=== PATIENT | male | born 1935 | race Caucasian/White ===

== ENCOUNTER 2018-06-30 16:05 | Emergency (ER) | payer MEDICARE, BC ==
[2018-06-30 16:31] VITALS: RESP 16
[2018-06-30] MEDS ORDERED: DIPH,PERTUS(ACELL)TETVAC-LF 0.5 ML VIAL IM ONE (16:59)
--- NOTE | 2018-06-30 17:03 | ED ---
General Adult HPI - General Source: patient, RN notes reviewed Mode of arrival: wheelchair Limitations: no limitations <Artem Rao - Last Filed: 06/30/18 17:00> <Tano Garrison - Last Filed: 06/30/18 19:13> - General Chief complaint: Fall Stated complaint: Fall-Head,Chest, Hand Injury Time Seen by Provider: 06/30/18 16:25 - History of Present Illness Initial comments: This is an 82-year-old male presents emergency department after he tripped and fell today. Patient fell hit his head has a laceration above the left eye. Patient states she does not have a headache he did not lose consciousness and he was not days per patient denies any neck pain. Patient denies any numbness or weakness. Patient states he has full range of motion of his neck. Patient also complains of left-sided rib pain when he struck the ground he says he hits his ribs. Patient denies any difficulty breathing or shortness of breath. Patient states he also has a skin tear to the medial aspect of his left hand at the area of the MCP joint of the fifth digit. Patient also has some tenderness of the fifth metacarpal. Patient also has some swelling under the left eye and some tenderness in that area. Patient is not on any blood thinners. (Artem Roa) - Related Data Home Medications Medication Instructions Recorded Confirmed Acetaminophen Tab [Tylenol] 500 mg PO Q8HR 06/30/18 06/30/18 Aspirin [[place] Aspirin EC] 81 mg PO DAILY 06/30/18 06/30/18 Atorvastatin [Lipitor] 80 mg PO DAILY 06/30/18 06/30/18 Ezetimibe [Zetia] 10 mg PO DAILY 06/30/18 06/30/18 Glucosam/Víctor-Msm1/C/Onesimo/Bosw 1 tab PO DAILY 06/30/18 06/30/18 [Glucosamine-Chondroitin Tablet] Latanoprost/Pf [Latanoprost 0.005% 1 drop BOTH EYES BID 06/30/18 06/30/18 Eye Drop] Allergies Allergy/AdvReac Type Severity Reaction Status Date / Time No Known Allergies Allergy Verified 06/30/18 16:50 Review of Systems ROS Other: All systems not noted in ROS Statement are negative. <Artem Rao - Last Filed: 06/30/18 17:00> ROS Other: All systems not noted in ROS Statement are negative. <MeliTano - Last Filed: 06/30/18 19:13> ROS Statement: Those systems with pertinent positive or pertinent negative responses have been documented in the HPI. Past Medical History Past Medical History: Hyperlipidemia History of Any Multi-Drug Resistant Organisms: None Reported Additional Past Surgical History / Comment(s): CAROTID ARTERY Past Psychological History: No Psychological Hx Reported Smoking Status: Never smoker Past Alcohol Use History: Daily Past Drug Use History: None Reported <Artem Rao - Last Filed: 06/30/18 17:00> General Exam Limitations: no limitations <Artem Rao - Last Filed: 06/30/18 17:00> - General Exam Comments Initial Comments: GENERAL: Patient is well-developed and well-nourished. Patient is nontoxic and well- hydrated and is in mild distress. ENT: Neck is soft and supple. No significant lymphadenopathy is noted. Oropharynx is clear. Moist mucous membranes. Neck has full range of motion without eliciting any pain. Patient has swelling under the left eye and is very tender to touch and the inferior orbital region on the left. EYES: The sclera were anicteric and conjunctiva were pink and moist. Extraocular movements were intact and pupils were equal round and reactive to light. Eyelids were unremarkable. PULMONARY: Unlabored respirations. Good breath sounds bilaterally. No audible rales rhonchi or wheezing was noted. CARDIOVASCULAR: There is a regular rate and rhythm without any murmurs gallops or rubs. ABDOMEN: Soft and nontender with normal bowel sounds. No palpable organomegaly was noted. There is no palpable pulsatile mass. SKIN: Laceration above the left eye measuring 2 cm. Patient has a small skin tear in the medial aspect of the left hand over the fifth MCP. Patient has tenderness of the fifth metacarpal. NEUROLOGIC: Patient is alert and oriented x3. Cranial nerves II through XII are grossly intact. Motor and sensory are also intact. Normal speech, volume and content. Symmetrical smile. MUSCULOSKELETAL: Normal extremities with adequate strength and full range of motion. LYMPHATICS: No significant lymphadenopathy is noted PSYCHIATRIC: Normal psychiatric evaluation. (Artem Rao) Course Vital Signs 06/30/18 16:26 Temperature 97.8 F Pulse Rate 75 Respiratory 16 Rate Blood Pressure 153/75 O2 Sat by Pulse 96 Oximetry Procedures - Orthopedic Splinting/Casting Injury #1 Side: left Upper Extremity Injury Location: hand Upper Extremity Immobilizer: ulnar gutter <Tano Garrison - Last Filed: 06/30/18 19:13> - Orthopedic Splinting/Casting Injury #1 Additional Comments: NV intact after splint applied, patient does have bandages on the hand under the splint (Tano Garrison) Medical Decision Making <Tano Garrison - Last Filed: 06/30/18 19:13> - Medical Decision Making 82-year-old mechanical fall without loss of consciousness or headache. Chest x- ray shows mild pulmonary fibrotic changes without heart failure or pneumothorax. However clinically patient likely has rib fracture. Initial x-ray of the left hand is negative. However repeat x-ray shows a nondisplaced acute fracture of the proximal fifth metacarpal. This was splinted with an ulnar gutter splint. Lacerations were repaired. Discussed strict return parameters. Discussed following up with orthopedics and primary care in 1-2 days. (Tano Garrison) Disposition <Artem Rao - Last Filed: 06/30/18 17:00> Is patient prescribed a controlled substance at d/c from ED?: No <Tano Garrison - Last Filed: 06/30/18 19:13> Clinical Impression: Laceration, Rib fracture, Fracture of fifth metacarpal bone of left hand Disposition: HOME SELF-CARE Condition: Good Instructions (If sedation given, give patient instructions): Laceration (ED), Care For Your Stitches (ED), Hand Fracture (ED) Additional Instructions: Please rest ice and elevate the hand. Take Tylenol for pain. Please follow-up with orthopedics in one to 2 days. Return to the emergency department in 5 days to have sutures removed. Return if you have any other worsening symptoms. Follow-up with primary care in 1-2 days. Referrals: Wayne Hudson MD [STAFF PHYSICIAN] - 1-2 days Renetta Phelan MD [REFERRING] - 1-2 days
--- NOTE | 2018-06-30 17:38 | XR ---
EXAMINATION TYPE: XR chest 2V DATE OF EXAM: 06/30/2018 COMPARISON: NONE HISTORY: Short of breath TECHNIQUE: Frontal and lateral views of the chest are obtained. FINDINGS: There is slight coarsening of interstitial markings. Heart size is normal. There is no hea rt failure. Thoracic aorta is atheromatous. There is no pleural effusion. There is wire suture at the left clavicle from apparent old trauma. IMPRESSION: Mild pulmonary fibrotic changes. No heart failure. No pneumothorax.
--- NOTE | 2018-06-30 17:41 | CT ---
EXAMINATION TYPE: CT facial bones wo con DATE OF EXAM: 06/30/2018 COMPARISON: None HISTORY: Fall. Left side supraortbital laceration. CT DLP: 507.3 mGycm Automated exposure control for dose reduction was used. TECHNIQUE: CT scan of the sinuses is performed without contrast, axial images are obtained, coronal r eformatted images are also reviewed. FINDINGS: The orbital margins are intact. There is some depression of the floors of the left and righ t orbit consistent with old blowout fractures. I see no definite acute fracture. There is no evidence of retro-orbital mass. There is no evidence of mandible fracture. Temporomandibular joints appear in tact. Zygomatic arches appear normal. Nasal bone is deviated to the right side consistent with old in jury. There is apparent wire sutures at the lateral margins of both orbits. There is normal aeration of the temporal bones. There is density over the left lateral frontal bone consistent with laceration or bandages. There is no sign of a definite foreign body. There is soft tissue swelling inferior to the left orbit and anterior to the left zygoma. IMPRESSION: There is evidence of old fractures of the orbits. No acute fracture seen. Soft tissue swe lling below the left orbit.
--- NOTE | 2018-06-30 17:42 | XR ---
EXAMINATION TYPE: XR hand limited LT DATE OF EXAM: 06/30/2018 COMPARISON: NONE HISTORY: Pain TECHNIQUE: 2 views FINDINGS: There is some narrowing and spurring at the DIP joints of all the digits. This is more noti ceable at the thumb and the index finger and little finger. There is narrowing and spurring at the fi rst carpometacarpal joint. I see no fracture. There is no erosion. There is mild deformity of the bas e of the fifth metacarpal consistent with old healed fracture. IMPRESSION: No acute abnormality of the left hand.
[2018-06-30] MEDS ORDERED: LIDOCAINE 1% INJ 10MG/ML (20 ML MDV) SQ ONE (17:59)
[2018-06-30] MEDS ORDERED: SODIUM CHLORIDE 0.9% IRRIG 1,000 ML BTL IRRIGATION ONE (18:00)
--- NOTE | 2018-06-30 18:33 | XR ---
EXAMINATION TYPE: XR hand limited LT DATE OF EXAM: 06/30/2018 COMPARISON: Today HISTORY: Pain TECHNIQUE: 2 views FINDINGS: There is some deformity of the base of the fifth metacarpal. It is not clear if this is an acute fracture or evidence of old fracture. A definitive acute fracture line is not demonstrated. IMPRESSION: Nondisplaced acute fracture of the proximal fifth metacarpal not entirely excluded.
[2018-06-30 19:21] VITALS: BP 146/82; PULSE 74; TEMP 98.2
--- NOTE | 2018-07-01 04:49 | CDI ---
Documentation Clarification OP Dear Artem Rao MD Please do addendum to ED report which provides laceration repair preocedure note. Thank you, Conner Jamison Refrigeration Plant Operator If you have any questions, please contact Obstetrics Gynecology Md at [phone] [facility]
== END 2018-06-30 19:21 | disposition home or self-care (01) ==
LOC: EC 16:05
DX: S62.347A Nondisplaced fracture of base of fifth metacarpal bone, left hand, initial encounter for closed fracture (principal); S22.32XA Fracture of one rib, left side, initial encounter for closed fracture; S01.81XA Laceration without foreign body of other part of head, initial encounter; E78.5 Hyperlipidemia, unspecified; Z23 Encounter for immunization; Z79.82 Long term (current) use of aspirin; Z79.899 Other long term (current) drug therapy; W01.10XA Fall on same level from slipping, tripping and stumbling with subsequent striking against unspecified object, initial encounter; Y92.89 Other specified places as the place of occurrence of the external cause
CPT/HCPCS: 99284; 12011; 29125; 90471; 73120; 71046; 70486; 90715; J2001

== ENCOUNTER → 2020-10-26 | Outpatient (CLI) | payer MEDICARE, BC ==
--- NOTE | 2020-11-05 18:56 | P.HOLTER ---
24 hour Holter monitor shows sinus mechanism with a prolonged MN interval Runs of nonsustained SVT/atrial tachycardia, brief PVCs, infrequent Heart rates ranged from 56-94 beats a minute average 68 beats a minute
--- NOTE | 2020-11-06 17:11 | HM ---
Date: 11/05/20 18:55 Initialization Date: 11/05/20 18:55 24 hour Holter monitor shows sinus mechanism with a prolonged OH interval Runs of nonsustained SVT/atrial tachycardia, brief PVCs, infrequent Heart rates ranged from 56-94 beats a minute average 68 beats a minute MTDD
== END | disposition home or self-care (01) ==
LOC: RADECHMAIN 11:35
PROVIDERS: ATTEND Family Medicine
DX: I49.3 Ventricular premature depolarization (principal)
CPT/HCPCS: 93225; 93226

== ENCOUNTER 2022-09-05 14:55 | Emergency (ER) | payer MEDICARE, BC ==
[2022-09-05 15:50] VITALS: RESP 20
--- NOTE | 2022-09-05 16:40 | ED ---
General Adult HPI - General Chief complaint: Urogenital Stated complaint: Urinary urgency Time Seen by Provider: 09/05/22 15:57 Source: patient, family, RN notes reviewed Mode of arrival: ambulatory Limitations: no limitations - History of Present Illness Initial comments: Patient is a pleasant 86-year-old male presenting to the emergency Department with complaints with urinary urgency. Onset of symptoms was last 2-3 days. Patient feels like he frequently needs to go the restroom. Patient sometimes is unable to go her only small amounts. Patient has had some minimal symptoms similar to this for months or years however never this severe. No suprapubic fullness. No fever. - Related Data Home Medications Medication Instructions Recorded Confirmed Acetaminophen Tab [Tylenol] 500 mg PO Q8HR 06/30/18 06/30/18 Aspirin [[place] Aspirin EC] 81 mg PO DAILY 06/30/18 06/30/18 Atorvastatin [Lipitor] 80 mg PO DAILY 06/30/18 06/30/18 Ezetimibe [Zetia] 10 mg PO DAILY 06/30/18 06/30/18 Glucosam/Víctor-Msm1/C/[place]es[place]/Bosw 1 tab PO DAILY 06/30/18 06/30/18 [Glucosamine-Chondroitin Tablet] Latanoprost/Pf [Latanoprost 0.005% 1 drop BOTH EYES BID 06/30/18 06/30/18 Eye Drop] Previous Rx's Medication Instructions Recorded Sulfamethox-Tmp 800-160Mg [Bactrim 1 each PO Q12HR #20 tab 09/05/22 DS 800-160 mg] Allergies Allergy/AdvReac Type Severity Reaction Status Date / Time No Known Allergies Allergy Verified 09/05/22 15:50 Review of Systems ROS Statement: Those systems with pertinent positive or pertinent negative responses have been documented in the HPI. ROS Other: All systems not noted in ROS Statement are negative. Constitutional: Denies: fever Eyes: Denies: eye pain ENT: Denies: ear pain Respiratory: Denies: cough Cardiovascular: Denies: chest pain Endocrine: Denies: fatigue Gastrointestinal: Reports: as per HPI Genitourinary: Reports: urgency Musculoskeletal: Denies: back pain Skin: Denies: rash Neurological: Denies: weakness Past Medical History Past Medical History: Hyperlipidemia, Prostate Disorder Additional Past Medical History / Comment(s): COVID- 22 History of Any Multi-Drug Resistant Organisms: None Reported Additional Past Surgical History / Comment(s): CAROTID ARTERY, TURP Past Psychological History: No Psychological Hx Reported Smoking Status: Never smoker Past Alcohol Use History: Daily Past Drug Use History: None Reported General Exam Limitations: no limitations General appearance: alert, in no apparent distress Head exam: Present: normocephalic Respiratory exam: Present: normal lung sounds bilaterally Cardiovascular Exam: Present: regular rate, normal rhythm GI/Abdominal exam: Present: soft. Absent: tenderness exam: Present: normal inspection. Absent: testicular tenderness, scrotal swelling Extremities exam: Present: normal inspection Neurological exam: Present: alert Psychiatric exam: Present: normal affect, normal mood Skin exam: Present: normal color Course Vital Signs 09/05/22 15:47 Temperature 98.0 F Pulse Rate 71 Respiratory 20 Rate Blood Pressure 116/68 O2 Sat by Pulse 95 Oximetry Medical Decision Making - Medical Decision Making Was pt. sent in by a medical professional or institution (, PA, NEUROSCIENCE DIRECTOR NA, urgent care, hospital, or custodial...) When possible be specific @ -No Did you speak to anyone other than the patient for history (EMS, parent, family, police, friend...)? What history was obtained from this source @ - is present who helps provide history including onset of symptoms Did you review nursing and triage notes (agree or disagree)? Why? @ -I reviewed and agree with nursing and triage notes Were old charts reviewed (outside hosp., previous admission, EMS record, old EKG, old radiological studies, urgent care reports/EKG's, custodial records)? Report findings @ -No old charts were reviewed Differential Diagnosis (chest pain, altered mental status, abdominal pain women, abdominal pain men, vaginal bleeding, weakness, fever, dyspnea, syncope, headache, dizziness, GI bleed, back pain, seizure, CVA, palpatations, mental health, musculoskeletal)? @ -Differential Abdominal Pain Men: Appendicitis, cholecystitis, diverticulosis, ischemic bowel, pancreatitis, hepatitis, UTI, gastroenteritis, AAA, incarcerated hernia, bowel obstruction, constipation, inflammatory bowel, hepatitis, peptic ulcer disease, splenic infarction, perforated viscus, testicular torsion, this is not meant to be an all-inclusive list EKG interpreted by me (3pts min.). @ -As above X-rays interpreted by me (1pt min.). @ -None done CT interpreted by me (1pt min.). @ -None done U/S interpreted by me (1pt. min.). @ -None done What testing was considered but not performed or refused? (CT, X-rays, U/S, labs)? Why? @ -None What meds were considered but not given or refused? Why? @ -None Did you discuss the management of the patient with other professionals (professionals i.e. Dr., PA, NEUROSCIENCE DIRECTOR NA, lab, RT, psych nurse, high school social studies tutor, iron installer, teacher, forestry technical officer, egg caser)? Give summary @ -No Was smoking cessation discussed for >3mins.? @ -No Was critical care preformed (if so, how long)? @ -No Were there social determinants of health that impacted care today? How? (Homelessness, low income, unemployed, alcoholism, drug addiction, transportation, low edu. Level, literacy, decrease access to med. care, snf, rehab)? @ -No Was there de-escalation of care discussed even if they declined (Discuss DNR or withdrawal of care, Hospice)? DNR status @ -No What co-morbidities impacted this encounter? (DM, HTN, Smoking, COPD, CAD, Cancer, CVA, ARF, Chemo, Hep., AIDS, mental health diagnosis, sleep apnea, morbid obesity)? @ -None Was patient admitted / discharged? Hospital course, mention meds given and route, prescriptions, significant lab abnormalities, going to OR and other pertinent info. @ -Patient had bladder scan with only 11 mL residual. Patient therefore had blood work showing no concern for renal failure. Patient does have evidence of urinary tract infection. Patient will be discharged with antibiotics and recommended follow-up. Undiagnosed new problem with uncertain prognosis? @ -No Drug Therapy requiring intensive monitoring for toxicity (Heparin, Nitro, Insulin, Cardizem)? @ -No Were any procedures done? @ -No Diagnosis/symptom? @ -Urinary tract infection Acute, or Chronic, or Acute on Chronic? @ -Acute Uncomplicated (without systemic symptoms) or Complicated (systemic symptoms)? @ -default Side effects of treatment? @ -No Exacerbation, Progression, or Severe Exacerbation? @ -No Poses a threat to life or bodily function? How? (Chest pain, [place], [place], pneumonia, PE, COPD, DKA, ARF, appy, cholecystitis, CVA, Diverticulitis, Homicidal, Suicidal, threat to staff... and all critical care pts) @ -No - Lab Data Result diagrams: 09/05/22 15:55 09/05/22 15:55 Lab Results 09/05/22 09/05/22 09/05/22 Range/Units 15:55 15:55 18:06 WBC 8.5 (3.8-10.6) k/uL RBC 4.86 (4.30-5.90) m/uL Hgb 15.7 (13.0-17.5) gm/dL Hct 46.5 (39.0-53.0) % MCV 95.7 (80.0-100.0) fL MCH 32.4 (25.0-35.0) pg MCHC 33.8 (31.0-37.0) g/dL RDW 12.2 (11.5-15.5) % Plt Count 193 (150-450) k/uL MPV 7.8 Neutrophils % 69 % Lymphocytes % 17 % Monocytes % 7 % Eosinophils % 4 % Basophils % 0 % Neutrophils # 5.9 (1.3-7.7) k/uL Lymphocytes # 1.5 (1.0-4.8) k/uL Monocytes # 0.6 (0-1.0) k/uL Eosinophils # 0.3 (0-0.7) k/uL Basophils # 0.0 (0-0.2) k/uL Sodium 141 (137-145) mmol/L Potassium 4.2 (3.5-5.1) mmol/L Chloride 104 (98-107) mmol/L Carbon Dioxide 29 (22-30) mmol/L Anion Gap 8 mmol/L BUN 19 (9-20) mg/dL Creatinine 0.90 (0.66-1.25) mg/dL Est GFR (CKD-EPI)AfAm 88 (>60 ml/min/1.73 sqM) Est GFR (CKD-EPI)NonAf 77 (>60 ml/min/1.73 sqM) Glucose 84 (74-99) mg/dL Calcium 8.6 (8.4-10.2) mg/dL Total Bilirubin 0.3 (0.2-1.3) mg/dL AST 33 (17-59) U/L ALT 35 (4-49) U/L Alkaline Phosphatase 108 (38-126) U/L Total Protein 6.1 L (6.3-8.2) g/dL Albumin 3.2 L (3.5-5.0) g/dL Urine Color Yellow Urine Appearance Turbid (Clear) Urine pH 5.0 (5.0-8.0) Ur Specific [place] 1.016 (1.001-1.035) Urine Protein Trace H (Negative) Urine Glucose (UA) Negative (Negative) Urine Ketones Negative (Negative) Urine Blood Trace H (Negative) Urine Nitrite Negative (Negative) Urine Bilirubin Negative (Negative) Urine Urobilinogen <2.0 (<2.0) mg/dL Ur Leukocyte Esterase Large H (Negative) Urine RBC 26 H (0-5) /hpf Urine WBC 77 H (0-5) /hpf Urine Mucus Rare H (None) /hpf Disposition Clinical Impression: Urinary tract infection Disposition: HOME SELF-CARE Condition: Stable Instructions (If sedation given, give patient instructions): Urinary Tract Infection in Men (ED) Additional Instructions: Please do follow-up with your primary care physician in the next couple days for recheck. Return for increased pain, fever, vomiting, worsening or changing symptoms or other concerns. Prescriptions: Sulfamethox-Tmp 800-160Mg [Bactrim DS 800-160 mg] 1 each PO Q12HR #20 tab Is patient prescribed a controlled substance at d/c from ED?: No Referrals: Zi Goldberg MD [STAFF PHYSICIAN] - 1-2 days Time of Disposition: 19:43
[2022-09-05 17:08] LABS: Basophils % (A) 0 %; Eosinophils # (A) 0.3 k/uL (0-0.7); Eosinophils % (A) 4 %; HCT 46.5 % (39.0-53.0); HGB 15.7 gm/dL (13.0-17.5); Lymphocytes # (A) 1.5 k/uL (1.0-4.8); Lymphocytes % (A) 17 %; MCH 32.4 pg (25.0-35.0); MCHC 33.8 g/dL (31.0-37.0); MCV 95.7 fL (80.0-100.0); Mean Platelet Volume 7.8; Monocytes # (A) 0.6 k/uL (0-1.0); Monocytes % (A) 7 %; Neutrophils # (A) 5.9 k/uL (1.3-7.7); Neutrophils % (A) 69 %; Platelet Count 193 k/uL (150-450); RBC 4.86 m/uL (4.30-5.90); RDW 12.2 % (11.5-15.5); WBC 8.5 k/uL (3.8-10.6)
[2022-09-05 17:31] LABS: Potassium 4.2 mmol/L (3.5-5.1)
[2022-09-05 17:32] LABS: ALT 35 U/L (4-49); AST 33 U/L (17-59); African American GFR (CKD) 88 (>60 ml/min/1.73 sqM); Albumin 3.2 g/dL (3.5-5.0); Alkaline Phosphatase 108 U/L (38-126); Anion Gap 8 mmol/L; Blood Urea Nitrogen 19 mg/dL (9-20); Calcium 8.6 mg/dL (8.4-10.2); Carbon Dioxide 29 mmol/L (22-30); Chloride 104 mmol/L (98-107); Glucose 84 mg/dL (74-99); Non-African American GFR(CKD) 77 (>60 ml/min/1.73 sqM); Sodium 141 mmol/L (137-145); Total Bilirubin 0.3 mg/dL (0.2-1.3); Total Protein 6.1 g/dL (6.3-8.2)
[2022-09-05 19:20] LABS: Appearance,Urine Turbid (Clear); Bilirubin,Urine Negative (Negative); Blood,Urine Trace (Negative); Color,Urine Yellow; Glucose,Urine (UA) Negative (Negative); Ketones,Urine Negative (Negative); Leukocyte Esterase,Urine Large (Negative); Mucus,Urine Rare /hpf; Nitrite,Urine Negative (Negative); Protein,Urine Trace (Negative); RBC,Urine 26 /hpf (0-5); Specific Gravity,Urine 1.016 (1.001-1.035); Urobilinogen,Urine <2.0 mg/dL (<2.0); WBC,Urine 77 /hpf (0-5)
[2022-09-05] MEDS ORDERED: SULFAMETHOX-TMP 800-160MG 1 EACH TAB PO STA (19:27)
[2022-09-05 19:57] VITALS: BP 110/70; PULSE 70; TEMP 98.2
== END 2022-09-05 19:50 | disposition home or self-care (01) ==
LOC: EC 14:55
DX: N39.0 Urinary tract infection, site not specified (principal); E78.5 Hyperlipidemia, unspecified; Z79.82 Long term (current) use of aspirin; Z79.899 Other long term (current) drug therapy; Z86.16 Personal history of COVID-19
CPT/HCPCS: 36415; 80053; 81001; 85025; 99283